=== PATIENT | male | born 1985 | race Caucasian/White ===

== ENCOUNTER 2017-05-09 11:38 | Emergency (ER) | payer SELFPAY, MEDICAID ==
[2017-05-09] MEDS: TETRACAINE 0.5% 4 ML OPH LEFT EYE (12:50)
[2017-05-09] MEDS: FLUORESCEIN STRIP LEFT EYE (12:50)
[2017-05-09] MEDS: DIPHTH/TET/ACEL PERTUSS (ADULT) 0.5 ML VIAL IM* (12:55)
== END 2017-05-09 14:34 | disposition home or self-care (01) ==
LOC: FTE 11:38
DX: S05.02XA Injury of conjunctiva and corneal abrasion without foreign body, left eye, initial encounter (principal); H11.421 Conjunctival edema, right eye; W22.09XA Striking against other stationary object, initial encounter; Y92.89 Other specified places as the place of occurrence of the external cause; Z23 Encounter for immunization
CPT/HCPCS: 90471; 90715; 99283-25